=== PATIENT | male | born 1990 | race Caucasian/White ===

== ENCOUNTER 2018-03-05 08:03 | Emergency (ER) | payer OTHER, SELFPAY ==
[2018-03-05] VITALS (25 sets, daily range): BP systolic 106–157; BP diastolic 51–80; PULSE 71–123; RESP 12–29; TEMP 36.7; O2SAT 82–100
--- NOTE | 2018-03-05 08:14 | W.ED.GENAD ---
Discharge Plan Disposition Patient Disposition: HOME Condition: Improving Discharge Details Chief Complaint: Headache Clinical Impression: Migraine Primary Care Provider: Darwin Lay ED Provider: Burt George Home Meds and New Rx's Prescriptions: New metoclopramide HCl [Reglan] 10 mg tablet 10 mg PO Q6H PRN (Reason: nausea and vomiting) Qty: 7 RF: 0 ibuprofen 800 mg tablet 800 mg PO Q8H PRN (Reason: pain) Qty: 14 RF: 0 Discontinued rizatriptan [Maxalt] 10 MG tablet 10 mg PO PRN PRN (Reason: Headache) RF: 0 Discharge Instructions Instructions: Migraine Headache (ED) Additional Instructions: Home to sleep in a dark, quiet room today. Para small, frequent sips of fluids. May continue acetaminophen or Tylenol as needed for discomfort. May use prescriptions, as discussed, as needed. We will ask our care management team to assist you in arranging primary care follow-up Medical Decision Making 27-year-old male with a history of migraine headaches presents from home complaining of right-sided severe headache since last night. Associated with nausea and photophobia. Minimally improved with Excedrin at home. He arrives anxious and tachycardic, with a grossly normal neurologic examination and no evidence of meningitis. IV placed, labs obtained, patient given fluids and parenteral medications. He was able to get some rest and subsequently felt improved with decrease of his pain level from 10-3. Discussed with him trial of Reglan and ibuprofen as abortive medications in the future. We will ask care management to arrange the establishment of primary care. Patient stable for discharge at this time. HPI General Mode of arrival: ambulatory. Date/Time Provider Initiated Documentation: 03/05/18 08:05. Limitations to Documentation: no limitations. Information obtained by: patient and family. History of Present Illness 27 year old M presents to the emergency department with the chief complaint of Headache, right-sided, since last night, similar to previous, described as severe and similar to prior episodes, Quality is described as constant, and is localized to the head and right. Patient reports no radiation. Patient started experiencing this hour(s) and it has been constant. No relieving factors improve symptom(s), Other factors that worsen symptoms (Light) . Patient notes no other symptoms.. Patient did receive the following treatments prior to arrival, other (Excedrin Migraine) Related Data Home Medications Medication Instructions Recorded Confirmed ibuprofen 800 mg PO Q8H PRN #14 tab 03/05/18 metoclopramide HCl [Reglan] 10 mg PO Q6H PRN #7 tab 03/05/18 Previous Rx's Medication Instructions Recorded ibuprofen 800 mg PO Q8H PRN #14 tab 03/05/18 metoclopramide HCl [Reglan] 10 mg PO Q6H PRN #7 tab 03/05/18 Allergies Allergy/AdvReac Type Severity Reaction Status Date / Time No Known Allergies Allergy Unverified 03/05/18 08:09 General Stated Complaint: Headache SONAM: 3 Review of Systems Review of Systems 6 systems reviewed and otherwise - PFSH Social History Smoking/Tobacco Use Status: Never Exam Narrative Exam Narrative: GEN: awake, alert, oriented 3. Pleasant, well groomed, interactive, anxious and shaking HEAD: Normocephalic, atraumatic ENT: Mucous membranes moist, oropharynx unremarkable, External ear exam unremarkable EYES: PERRL, EOMI NECK: Full ROM, no KARIN, no menigismus CHEST/RESP: Nontender, clear to auscultation bilateral, no wheeze/rhonchi/rales CARDIOVASCULAR: Regular and tachycardic, no murmur, rub krista. 2+ Rad pulse bilateral ABDOMEN: Soft, nontender, no mass. +Bowel sounds EXT: Full ROM, no edema, no rash Neuro: Grossly normal neurologic exam, conversant, interactive. Psych: Speech fluent, thoughts congruent, affect normal Course Vital Signs Temperature 36.7 C 03/05/18 08:06 Pulse 120 H 03/05/18 08:06 Respiratory Rate 16 03/05/18 08:06 Blood Pressure 157/80 H 03/05/18 08:06 Temperature 36.7 C 03/05/18 08:06 Pulse 120 H 03/05/18 08:06 Respiratory Rate 16 03/05/18 08:06 Respiratory Effort 03/05/18 08:10 Blood Pressure 157/80 H 03/05/18 08:06 Pain Level 10 03/05/18 08:06
[2018-03-05] MEDS: Lactated Ringers 1,000 ML 1000 ML IV (08:24)
--- NOTE | 2018-03-05 08:25 | ED.GENADUL_ITS ---
Discharge Plan Disposition Patient Disposition: HOME Condition: Improving Discharge Details Chief Complaint: Headache Clinical Impression: Migraine Primary Care Provider: Darwin Lay ED Provider: Burt George Home Meds and New Rx's Prescriptions: New metoclopramide HCl [Reglan] 10 mg tablet 10 mg PO Q6H PRN (Reason: nausea and vomiting) Qty: 7 RF: 0 ibuprofen 800 mg tablet 800 mg PO Q8H PRN (Reason: pain) Qty: 14 RF: 0 Discontinued rizatriptan [Maxalt] 10 MG tablet 10 mg PO PRN PRN (Reason: Headache) RF: 0 Discharge Instructions Instructions: Migraine Headache (ED) Additional Instructions: Home to sleep in a dark, quiet room today. Para small, frequent sips of fluids. May continue acetaminophen or Tylenol as needed for discomfort. May use prescriptions, as discussed, as needed. We will ask our care management team to assist you in arranging primary care fol low-up Medical Decision Making 27-year-old male with a history of migraine headaches presents from home complaining of right-sided severe headache since last night. Associated with nausea and photophobia. Minimally improved with Excedrin at home. He arrives anxious and tachycardic, with a grossly normal neurologic examination and no evidence of meningitis. IV placed, labs obtained, patient given fluids and parenteral medications. He was able to get some rest and subsequently felt improved with decrease of his pain level from 10-3. Discussed with him trial of Reglan and ibuprofen as abortive medications in the future. We will ask care management to arrange the establishment of primary care. Patient stable for discharge at this time. [facility] General Mode of arrival: ambulatory . Date/Time Provider Initiated Documentation: 03/05/18 08:05 . Limitations to Documentation: no limitations . Information obtained by: patient and family . History of Present Illness 27 year old M presents to the emergency department with the chief complaint of Headache, right-sided, since last night, similar to previous, described as severe and similar to prior episodes, Quality is described as constant, and is localized to the head and right. Patient reports no radiation. Patient started experiencing this hour(s) and it has been constant. No relieving factors improve symptom(s), Other factors that worsen symptoms (Light) . Patient notes no other symptoms.. Patient did receive the following treatments prior to arrival, other (Excedrin Migraine) Related Data Home Medications Medication Instructions Recorded Confirmed ibuprofen 800 mg PO Q8H PRN #14 tab 03/05/18 metoclopramide HCl [Reglan] 10 mg PO Q6H PRN #7 tab 03/05/18 Previous Rx's Medication Instructions Recorded ibuprofen 800 mg PO Q8H PRN #14 tab 03/05/18 metoclopramide HCl [Reglan] 10 mg PO Q6H PRN #7 tab 03/05/18 Allergies Allergy/AdvReac Type Severity Reaction Status Date / Time No Known Allergies Allergy Unverified 03/05/18 08:09 General Stated Complaint: Headache SONAM: 3 Review of Systems Review of Systems 6 systems reviewed and otherwise - PFSH Social History Smoking/Tobacco Use Status: Never Exam Narrative Exam Narrative: GEN: awake, alert, oriented 3. Pleasant, well groomed, interactive, anxious and shaking HEAD: Normocephalic, atraumatic ENT: Mucous membranes moist, oropharynx unremarkable, External ear exam unremarkable EYES: PERRL, EOMI NECK: Full ROM, no KARIN, no menigismus CHEST/RESP: Nontender, clear to auscultation bilateral, no wheeze/rhonchi/rales CARDIOVASCULAR: Regular and tachycardic, no murmur, rub krista. 2+ Rad pulse bilateral ABDOMEN: Soft, nontender, no mass. +Bowel sounds EXT: Full ROM, no edema, no rash Neuro: Grossly normal neurologic exam, conversant, interactive. Psych: Speech fluent, thoughts congruent, affect normal Course Vital Signs Temperature 36.7 C 03/05/18 08:06 Pulse 120 H 03/05/18 08:06 Respiratory Rate 16 03/05/18 08:06 Blood Pressure 157/80 H 03/05/18 08:06 Temperature 36.7 C 03/05/18 08:06 Pulse 120 H 03/05/18 08:06 Respiratory Rate 16 03/05/18 08:06 Respiratory Effort 03/05/18 08:10 Blood Pressure 157/80 H 03/05/18 08:06 Pain Level 10 03/05/18 08:06
[2018-03-05 08:26] LABS: Abs Immature Grans 0.01 k/cumm (0.0-0.09); Absolute Basophil Count 0.02 k/cumm (0.0-0.2); Absolute Lymphocyte Count 1.76 k/cumm (1.2-3.4); Absolute Monocyte Count 0.67 k/cumm (0.11-0.7); Absolute Neutrophil Count 8.68 k/cumm (1.2-6.7); Basophils % 0.2; HCT 42.9 % (40.0-50.0); HGB 15.2 g/dL (13.5-17.5); Immature Grans % 0.1; Lymphocytes % 15.8; Mean Corp. HGB Concentration 35.4 g/dL (32.0-36.0); Mean Corpuscular Hemoglobin 32.2 pg (27.0-33.0); Mean Corpuscular Volume 90.9 fL (80-95); Mean Platelet Volume 9.8 fL (8.0-11.0); Neutrophils % 77.9; Platelet Count 291 x1000/uL (130-400); RBC 4.72 m/cumm (4.50-6.00); RBC Distribution Width 12.5 % (11.8-14.1); White Blood Cell Count 11.14 k/cumm (4.4-10.8)
[2018-03-05] MEDS: LORazepam 2 MG/ML VIAL 1 MG IVP (08:26)
[2018-03-05] MEDS: Ketorolac 30 MG/ML VIAL IVP (08:26)
[2018-03-05] MEDS: Ondansetron 4 MG/2 ML VIAL IVP (08:27)
[2018-03-05] MEDS: Dexamethasone 10 MG/ML VIAL IVP (08:36)
[2018-03-05 08:49] LABS: Anion Gap 14.4 mmol/L (3-11); BUN 13 mg/dL (7-18); CO2 23.6 mmol/L (21.0-32.0); CREATININE 0.98 mg/dL (0.70-1.30); Calcium 9.5 mg/dL (8.5-10.1); Chloride 96 mmol/L (98-107); Glucose 109 mg/dL (70-100); Potassium 3.7 mmol/L (3.5-5.1); Sodium 134 mmol/L (136-145)
== END 2018-03-05 10:51 | disposition home or self-care (01) ==
PROVIDERS: Emergency Provider Emergency Medicine; PCP General Practice
DX: G43.909 Migraine, unspecified, not intractable, without status migrainosus (principal)
CPT/HCPCS: 36415; 80048; 96361; 96374; 96375; 99283; 85025; J1100; J1885; J2060; J2405

== ENCOUNTER 2018-04-14 08:47 | Emergency (ER) | payer OTHER, SELFPAY ==
[2018-04-14] VITALS (27 sets, daily range): BP systolic 121–136; BP diastolic 56–84; PULSE 73–102; RESP 11–24; TEMP 36.5; O2SAT 88–100
--- NOTE | 2018-04-14 09:04 | NUR.NOTE ---
pt states that for the past week he has had a fevor of 102 and approximately once a day for about an hr he develops SOB, nausea, dizziness, hand cramps, tingle and an extreme overwhelming feeling pt has a history of panic attacks
--- NOTE | 2018-04-14 09:34 | DI.RAD_ITS ---
SYMPTOM/DIAGNOSIS: CHEST TIGHTNESS PA AND LATERAL CHEST: Comparison is made with 03 Aug 2015. The cardiac and mediastinal contours have a normal appearance. The lungs are well inflated and clear. No infiltrate, effusion or pneumothorax is seen. There is no peribronchial thickening. No bony abnormalities are identified. IMPRESSION: Negative chest x-ray.
--- NOTE | 2018-04-14 09:38 | ED.GENADUL_ITS ---
Discharge Plan Disposition Patient Disposition: HOME Condition: Improving Discharge Details Chief Complaint: GenMedical Clinical Impression: Anxiety, Viral illness Primary Care Provider: Dariwn Lay ED Provider: Clemente Mckeon Discharge Instructions Instructions: Viral Syndrome (ED), Anxiety (ED) Additional Instructions: Return immediately to the emergency department for any further concerns you may have. Otherwise rest over the next couple days, stay well-hydrated. Follow-up with your primary care provider next week for reassessment of your symptoms. Stand Alone Forms: Work Release Referrals: Darwin Lay MD [Primary Care Provider] - 1 week (Please call the office to arrange follow-up appointment within the next week) Discharge Data Discharge Date/Time-TO BE ENTERED AT DEPARTURE: 04/14/18 15:05 Medical Decision Making Patient presenting the emergency department for chief complaint of chest tightness, shaking, diaphoresis. Patient states this began on Saturday while he was at a work meeting which she had to abruptly leave. He then researched on the Internet medical symptoms which seem to make his symptoms worse. He states over the weekend this is has been intermittent with some tingling to his hands during episodes. Patient states when he initially presented to the emergency department he is feeling symptoms but by the time I was able to assess the patient he states feeling more calm, his hands are less shaky, and denies any chest pain. Patient does state significant cardiac history with cousin dying in his 40s and father having AK in his 50s. Plan to check EKG, cardiac labs, and chest x-ray. I am mostly concerned about panic attack given intermittent nature of patient's symptoms. Due to this plan to give patient 1 mg of Ativan pending results Review of labs show a low magnesium, elevated anion gap, nonspecific elevation of AST and ALT otherwise nondiagnostic labs. Patient was questioning about alcohol use and he states that he only socially drinks and had a beer a couple days ago but no significant alcohol abuse. Given increase in anion gap and AST greater than ALT I still question possible alcohol abuse as this could also be leading to patient's anxiety if he is withdrawing but he denies any symptoms of that nature. Patient was agreeable to having second troponin done as initial troponin is negative and repeat EKG. Second troponin reviewed and is also negative. Patient had another EKG done and showed no acute changes. Please see Dr. Genevieve Cash's notation of EKG findings that were nondiagnostic. Upon reassessment patient states improvement of symptoms. Thoroughly discussed with patient that he should follow-up with primary care provider within the next week for reassessment as I feel that this is anxiety panic attacks may need some ongoing medication if symptoms persist. At time of discharge patient did state that he been around other people with influenza and did have a fever and chills last week. Again reexamination shows no pericardial friction rub or acute abnormalities patient is afebrile non- tachycardic not hypoxic at this time so I do not feel that any further workup is needed or warranted. Doubt pericarditis. Patient does state during illness though that he did not receive much sleep and maybe got a half an hour over a 2-3-day span. I feel that this could also be leading towards patient having anxiety or panic attacks. Patient strongly encouraged to return as needed otherwise to follow-up with PCP. After discussion of diagnosis and plan of care patient is no further needs, questions, or concerns and states clear understanding to return to the emergency department for any worsening symptoms. HPI General Mode of arrival: ambulatory . Date/Time Provider Initiated Documentation: 04/14/18 09:13 . Limitations to Documentation: no limitations . Information obtained by: patient and RN notes reviewed . History of Present Illness 27 year old M presents to the emergency department with the chief complaint of Shortness of breath, Quality is described as other (Denies pain), Patient started experiencing this day(s) (4) and it has been intermittent and now resolved. Rest improves symptom(s), No exacerbating factors reported . Patient notes no other symptoms.. Patient did receive the following treatments prior to arrival, none Related Data Allergies Allergy/AdvReac Type Severity Reaction Status Date / Time No Known Allergies Allergy Unverified 04/14/18 09:09 General Stated Complaint: GenMedical SONAM: 3 Review of Systems Constitutional Denies chills, Denies fever(s) and Denies malaise Cardiovascular Reports as per HPI, Denies chest pain, Denies chest pain with activity, Reports diaphoresis, Denies syncope, Denies edema, Denies irregular heart rhythm, Denies palpitations, Reports dyspnea and Denies dyspnea on exertion Respiratory Denies cough, Denies hemoptysis, Reports dyspnea, Denies dyspnea on exertion, Denies stridor and Denies wheezing Gastrointestinal Denies abdominal pain, Denies nausea and Denies vomiting Neurologic Denies syncope Psychiatric Denies anxiety Endocrine Denies cold intolerance, Denies heat intolerance and Denies palpitations Allergic/Immunologic Denies wheezing PFSH Social History Smoking/Tobacco Use Status: Never Exam Const General: cooperative, healthy appearing, anxious, not diaphoretic and not ill appearing Nutritional Appearance: average body habitus Orientation: alert, awake and oriented x3 Limitations: mental status not altered Neck Neck: normal visual inspection, full ROM, trachea midline, supple and no anterior neck swelling Thyroid: thyroid normal Carotids: normal carotid upstroke and no bruits Chest Chest: normal inspection of the chest Resp Effort & Inspection: normal respiratory effort and able to speak in complete sentences Auscultation: clear to auscultation bilaterally Cardio Jugular venous pressure: no JVD Palpation: normal PMI Rate: regular rate Rhythm: regular rhythm Heart Sounds: S1 normal, S2 normal, no click, no gallops, no murmurs and no rubs Bruits: no abdominal aortic bruits and no carotid bruits Pulses: radial pulses present bilaterally 2+ GI Inspection: normal to inspection Palpation: soft, no aortic enlargement, no pulsatile masses and nontender Auscultation: normal bowel sounds Skin General skin exam: no rashes or lesions noted Neuro General: alert, awake, oriented x3, tone normal and moves all extremities Course Vital Signs Temperature 36.5 C 04/14/18 09:07 Pulse 102 H 04/14/18 09:07 Respiratory Rate 23 04/14/18 09:07 Blood Pressure 132/84 04/14/18 09:07 Pulse Oximetry 100 04/14/18 09:07 Temperature 36.5 C 04/14/18 09:07 Temperature Source Skin 04/14/18 09:07 Pulse 102 H 04/14/18 09:07 Respiratory Rate 23 04/14/18 09:07 Respiratory Effort Short of Breath 04/14/18 09:27 Blood Pressure 132/84 04/14/18 09:07 Pulse Oximetry 100 04/14/18 09:07 Oxygen Delivery Method Room Air 04/14/18 09:07 Oxygen Flow Rate 0 04/14/18 09:07 Pain Level 0 04/14/18 09:07
[2018-04-14 09:57] LABS: Abs Immature Grans 0.02 k/cumm (0.0-0.09); Absolute Basophil Count 0.02 k/cumm (0.0-0.2); Absolute Lymphocyte Count 1.03 k/cumm (1.2-3.4); Absolute Monocyte Count 0.63 k/cumm (0.11-0.7); Absolute Neutrophil Count 7.64 k/cumm (1.2-6.7); Basophils % 0.2; HCT 40.9 % (40.0-50.0); HGB 14.1 g/dL (13.5-17.5); Immature Grans % 0.2; Mean Corp. HGB Concentration 34.5 g/dL (32.0-36.0); Mean Platelet Volume 9.4 fL (8.0-11.0); Monocytes % 6.7; Neutrophils % 81.9; Platelet Count 234 x1000/uL (130-400); RBC Distribution Width 12.8 % (11.8-14.1); White Blood Cell Count 9.34 k/cumm (4.4-10.8)
[2018-04-14] MEDS: LORazepam 2 MG/ML VIAL 1 MG IVP (10:00)
[2018-04-14 10:13] LABS: ALT 85 U/L (12-78); AST 99 U/L (15-37); Albumin 4.3 g/dL (3.4-5.0); Alkaline Phosphatase 93 U/L (46-116); Anion Gap 19.1 mmol/L (3-11); BUN 12 mg/dL (7-18); Bilirubin, Total 0.9 mg/dL (0.2-1.0); CO2 19.9 mmol/L (21.0-32.0); CREATININE 1.09 mg/dL (0.70-1.30); Calcium 9.4 mg/dL (8.5-10.1); Chloride 98 mmol/L (98-107); Glucose 108 mg/dL (70-100); Magnesium 1.4 mg/dL (1.8-2.4); Potassium 3.6 mmol/L (3.5-5.1); Sodium 137 mmol/L (136-145); Total Protein 8.2 g/dL (6.4-8.2); Troponin I < 0.02 ng/mL (0.00-0.06)
[2018-04-14] MEDS: LORazepam 1 MG TAB PO (11:43)
[2018-04-14 13:29] LABS: Troponin I < 0.02 ng/mL (0.00-0.06)
[2018-04-14] MEDS: Magnesium Oxide 400 MG TAB 800 MG PO (15:01)
--- NOTE | 2018-04-15 09:12 | PDOC.ERCMPRO ---
Care Management Progress Note 04/14-[facility] [employer] requested assistance with a PCP (Alireza) f/u in one week for reassessment of anxiety/chest pain. Referral faxed to Dr. Lay's office this am.
== END 2018-04-14 15:05 | disposition home or self-care (01) ==
PROVIDERS: Emergency Provider Nurse Practitioner Family; PCP General Practice
DX: F41.9 Anxiety disorder, unspecified (principal); B34.9 Viral infection, unspecified
CPT/HCPCS: 36415; 80053; 93005; 96374; 99284; 71046; 83735; 84484; 85025; 93010; J2060

== ENCOUNTER 2018-05-21 07:20 | Emergency (ER) | payer OTHER, SELFPAY ==
[2018-05-21 07:27] VITALS: BP 154/91; PULSE 91; RESP 16; TEMP 36.5; O2SAT 99
[2018-05-21] MEDS: Normal Saline 1,000 ML 1000 ML IV ×2 (07:35→09:00)
[2018-05-21] MEDS: Ondansetron 4 MG/2 ML VIAL (07:45)
--- NOTE | 2018-05-21 08:13 | W.ED.GENAD ---
Discharge Plan Disposition Patient Disposition: HOME Condition: Stable Discharge Details Chief Complaint: Nausea/Vomit/Diar Clinical Impression: Strep pharyngitis, Vomiting, Hypokalemia Primary Care Provider: Darwin Lay ED Provider: Genevieve Cash Home Meds and New Rx's Prescriptions: New penicillin V potassium 500 mg tablet 500 mg PO BID 10 Days Qty: 19 RF: 0 Continued sertraline [Zoloft] 50 mg Tablet 50 mg PO DAILY RF: 0 Discharge Instructions Instructions: Penicillin V (By mouth), Ondansetron (By mouth), Pharyngitis (ED), Hypokalemia (ED), Acute Nausea and Vomiting (ED) Additional Instructions: Please return immediately to the emergency department if you develop any new or worsening symptoms or if you become otherwise concerned. It is extremely important that you make an appointment to be seen in follow-up by your primary care doctor soon as possible. Stand Alone Forms: Work Release Referrals: Darwin Lay MD [Primary Care Provider] - Discharge Data Discharge Date/Time-TO BE ENTERED AT DEPARTURE: 05/21/18 11:25 Medical Decision Making Kai Wright is a 27-year-old with history of heavy alcohol use presenting to the emergency department with 3 days of sore throat, vomiting, diarrhea, and fever. On exam patient is well and nontoxic appearing with erythematous posterior pharynx. Exam/history is not consistent with acute emergent abdominal process, retropharyngeal/peritonsillar abscess, meningitis, sepsis, pneumonia. Concern for mild dehydration, possible metabolic/lyte derangement given several days of vomiting/diarrhea, gastroenteritis, bacterial pharyngitis, influenza. And for IV fluid hydration, screening labs, UA, IV Zofran. Will monitor and reassess. No vomiting in the emergency department. Patient feels much improved after fluids. Strep test positive. Labs show hypokalemia, will replete with p.o. Will treat with penicillin. Patient passed p.o. challenge without issue. He is requesting discharge home. I had a lengthy discussion with the patient regarding return to emergency department precautions, home care and importance of outpatient follow-up as soon as possible. Patient verbalized understanding of the plan and is amenable. All questions answered. Medical Records Medical records reviewed: Yes I reviewed the patient's medical records. Lab Data Lab results reviewed: Yes I reviewed the patient's lab results. HPI General Mode of arrival: ambulatory. Date/Time Provider Initiated Documentation: 05/21/18 07:40. Limitations to Documentation: no limitations. Information obtained by: patient. HPI Narrative: Clay Tran is a 27-year-old man with history of heavy alcohol use presenting to the emergency department with sore throat, nausea, vomiting for the past 3 days. Patient reports that he has also had fever, with highest fever being 103.12 days ago. Patient reports that he has been taking Tylenol at home for his symptoms and no other medications. Last took Tylenol at 530 or 6 AM this morning. Patient reports that everything that he eats or drinks he vomits up directly after ingesting. Has also had some diarrhea. He denies abdominal pain or any other pain other than sore throat. He reports that he has had a mild cough. No recent travel. Related Data Home Medications Medication Instructions Recorded Confirmed penicillin V potassium 500 mg PO BID 10 Days #19 tab 05/21/18 sertraline [Zoloft] 50 mg PO DAILY 05/21/18 05/21/18 Previous Rx's Medication Instructions Recorded penicillin V potassium 500 mg PO BID 10 Days #19 tab 05/21/18 Allergies Allergy/AdvReac Type Severity Reaction Status Date / Time No Known Allergies Allergy Unverified 05/21/18 07:30 General Stated Complaint: Nausea/Vomit/Diar SONAM: 3 Review of Systems Review of Systems Constitutional: Reports fevers Eyes: denies eye pain ENT: denies facial pain, dental pain, reports sore throat Cardiovascular: denies chest pain Respiratory: denies SOB, reports mild cough GI: denies abdominal pain, reports vomiting, diarrhea : denies flank pain MSK: denies back pain, neck pain, arthralgias, myalgias Skin: denies rash Neuro: denies headaches, numbness, weakness [facility] Social History Smoking/Tobacco Use Status: Never Drug use: Occasionally Do you feel safe in your relationship?: Yes Exam Narrative Exam Narrative: Constitutional: well and [id number], pleasant, conversing normally HENT: head atraumatic/normocephalic/normal inspection, mucous membranes moist, posterior pharynx erythematous, tonsils are +1 edema bilaterally without exudate, uvula midline, handling secretions without issue/no drooling Eyes: conjunctiva normal, sclera normal, pupils 3mm b/l Neck: no stridor, normal ROM, trachea midline Chest: normal inspection Resp: normal work of breathing, LCTAB Cardio: normal rate, normal rhythm, no murmur appreciated GI: abdomen soft, non-tender, non-distended Back: normal inspection, no rash Skin: warm, dry, normal color, no rash Neuro: alert, not altered, grossly non-focal, normal tone Ext: no edema Psych: normal mood, normal affect, normal behavior Course Vital Signs Temperature 36.5 C 05/21/18 07:27 Pulse 91 H 05/21/18 07:27 Respiratory Rate 16 05/21/18 07:27 Blood Pressure 154/91 H 05/21/18 07:27 Pulse Oximetry 99 05/21/18 07:27 Temperature 36.5 C 05/21/18 07:27 Temperature Source Skin 05/21/18 07:27 Pulse 91 H 05/21/18 07:27 Respiratory Rate 16 05/21/18 07:27 Respiratory Effort Non-Labored 05/21/18 07:27 Blood Pressure 154/91 H 05/21/18 07:27 Blood Pressure Position Sitting 05/21/18 07:27 Pulse Oximetry 99 05/21/18 07:27 Oxygen Delivery Method Room Air 05/21/18 07:27 Oxygen Flow Rate 0 05/21/18 07:27 Pain Level 4 05/21/18 07:27 Lab/Test Results Lab/Test Results: 05/21/18 08:00 Nasopharynx Influenza Types A,B Antigen - Pending POC Strep Test-FLORENTINO(Rapid) Start: 05/21/18 08:12 Freq: .Rapid Strep Test Status: Active Protocol: Document 05/21/18 08:12 MMQ (Rec: 05/21/18 08:12 MMQ [id number]) Strep test-FL[facility]INO(Rapid)-POC POC-Strep test-[facility]INO (Rapid) Positive POC-Strep test-[facility]INO (Rapid) Positive
--- NOTE | 2018-05-21 08:16 | ED.GENADUL_ITS ---
Discharge Plan Disposition Patient Disposition: HOME Condition: Stable Discharge Details Chief Complaint: Nausea/Vomit/Diar Clinical Impression: Strep pharyngitis, Vomiting, Hypokalemia Primary Care Provider: Darwin Lay ED Provider: Genevieve Cash Home Meds and New Rx's Prescriptions: New penicillin V potassium 500 mg tablet 500 mg PO BID 10 Days Qty: 19 RF: 0 Continued sertraline [Zoloft] 50 mg Tablet 50 mg PO DAILY RF: 0 Discharge Instructions Instructions: Penicillin V (By mouth), Ondansetron (By mouth), Pharyngitis (ED), Hypokalemia (ED), Acute Nausea and Vomiting (ED) Additional Instructions: Please return immediately to the emergency department if you develop any new or worsening symptoms or if you become otherwise concerned. It is extremely important that you make an appointment to be seen in follow-up by your primary care doctor soon as possible. Stand Alone Forms: Work Release Referrals: Darwin Lay MD [Primary Care Provider] - Discharge Data Discharge Date/Time-TO BE ENTERED AT DEPARTURE: 05/21/18 11:25 Medical Decision Making Kai Wright is a 27-year-old with history of heavy alcohol use presenting to the emergency department with 3 days of sore throat, vomiting, diarrhea, and fever. On exam patient is well and nontoxic appearing with erythematous posterior pharynx. Exam/history is not consistent with acute emergent abdominal process, retropharyngeal/peritonsillar abscess, meningitis, sepsis, pneumonia. Concern for mild dehydration, possible metabolic/lyte derangement given several days of vomiting/diarrhea, gastroenteritis, bacterial pharyngitis, influenza. And for IV fluid hydration, screening labs, UA, IV Zofran. Will monitor and reassess. No vomiting in the emergency department. Patient feels much improved after fluids. Strep test positive. Labs show hypokalemia, will replete with p.o. Will treat with penicillin. Patient passed p.o. challenge without issue. He is requesting discharge home. I had a lengthy discussion with the patient regarding return to emergency department precautions, home care and importance of outpatient follow-up as soon as possible. Patient verbalized understanding of the plan and is amenable. All questions answered. Medical Records Medical records reviewed: Yes I reviewed the patient's medical records. Lab Data Lab results reviewed: Yes I reviewed the patient's lab results. HPI General Mode of arrival: ambulatory . Date/Time Provider Initiated Documentation: 05/21/18 07:40 . Limitations to Documentation: no limitations . Information obtained by: patient . HPI Narrative: Clay Tran is a 27-year-old man with history of heavy alcohol use presenting to the emergency department with sore throat, nausea, vomiting for the past 3 days. Patient reports that he has also had fever, with highest fever being 103.12 days ago. Patient reports that he has been taking Tylenol at home for his symptoms and no other medications. Last took Tylenol at 530 or 6 AM this morning. Patient reports that everything that he eats or drinks he vomits up directly after ingesting. Has also had some diarrhea. He denies abdominal pain or any other pain other than sore throat. He reports that he has had a mild cough. No recent travel. Related Data Home Medications Medication Instructions Recorded Confirmed penicillin V potassium 500 mg PO BID 10 Days #19 tab 05/21/18 sertraline [Zoloft] 50 mg PO DAILY 05/21/18 05/21/18 Previous Rx's Medication Instructions Recorded penicillin V potassium 500 mg PO BID 10 Days #19 tab 05/21/18 Allergies Allergy/AdvReac Type Severity Reaction Status Date / Time No Known Allergies Allergy Unverified 05/21/18 07:30 General Stated Complaint: Nausea/Vomit/Diar SONAM: 3 Review of Systems Review of Systems Constitutional: Reports fevers Eyes: denies eye pain ENT: denies facial pain, dental pain, reports sore throat Cardiovascular: denies chest pain Respiratory: denies SOB, reports mild cough GI: denies abdominal pain, reports vomiting, diarrhea : denies flank pain MSK: denies back pain, neck pain, arthralgias, myalgias Skin: denies rash Neuro: denies headaches, numbness, weakness [facility] Social History Smoking/Tobacco Use Status: Never Drug use: Occasionally Do you feel safe in your relationship?: Yes Exam Narrative Exam Narrative: Constitutional: well and [id number], pleasant, conversing normally HENT: head atraumatic/normocephalic/normal inspection, mucous membranes moist, posterior pharynx erythematous, tonsils are +1 edema bilaterally without exudate, uvula midline, handling secretions without issue/no drooling Eyes: conjunctiva normal, sclera normal, pupils 3mm b/l Neck: no stridor, normal ROM, trachea midline Chest: normal inspection Resp: normal work of breathing, LCTAB Cardio: normal rate, normal rhythm, no murmur appreciated GI: abdomen soft, non-tender, non-distended Back: normal inspection, no rash Skin: warm, dry, normal color, no rash Neuro: alert, not altered, grossly non-focal, normal tone Ext: no edema Psych: normal mood, normal affect, normal behavior Course Vital Signs Temperature 36.5 C 05/21/18 07:27 Pulse 91 H 05/21/18 07:27 Respiratory Rate 16 05/21/18 07:27 Blood Pressure 154/91 H 05/21/18 07:27 Pulse Oximetry 99 05/21/18 07:27 Temperature 36.5 C 05/21/18 07:27 Temperature Source Skin 05/21/18 07:27 Pulse 91 H 05/21/18 07:27 Respiratory Rate 16 05/21/18 07:27 Respiratory Effort Non-Labored 05/21/18 07:27 Blood Pressure 154/91 H 05/21/18 07:27 Blood Pressure Position Sitting 05/21/18 07:27 Pulse Oximetry 99 05/21/18 07:27 Oxygen Delivery Method Room Air 05/21/18 07:27 Oxygen Flow Rate 0 05/21/18 07:27 Pain Level 4 05/21/18 07:27 Lab/Test Results Lab/Test Results: 05/21/18 08:00 Nasopharynx Influenza Types A,B Antigen - Pending POC Strep Test-FLORENTINO(Rapid) Start: 05/21/18 08:12 Freq: .Rapid Strep Test Status: Active Protocol: Document 05/21/18 08:12 MMQ (Rec: 05/21/18 08:12 [id number] [id number]) Strep test-FL[facility]INO(Rapid)-POC POC-Strep test-[facility]INO (Rapid) Positive POC-Strep test-[facility] (Rapid) Positive
[2018-05-21 08:39] LABS: Abs Immature Grans 0.02 k/cumm (0.0-0.09); Absolute Basophil Count 0.03 k/cumm (0.0-0.2); Absolute Eosinophil Count 0.03 k/cumm (0.0-0.7); Absolute Lymphocyte Count 1.69 k/cumm (1.2-3.4); Absolute Monocyte Count 0.87 k/cumm (0.11-0.7); Absolute Neutrophil Count 12.16 k/cumm (1.2-6.7); Basophils % 0.2; Eosinophils % 0.2; HCT 41.4 % (40.0-50.0); Immature Grans % 0.1; Lymphocytes % 11.4; Mean Corp. HGB Concentration 33.8 g/dL (32.0-36.0); Mean Corpuscular Hemoglobin 31.9 pg (27.0-33.0); Mean Corpuscular Volume 94.3 fL (80-95); Mean Platelet Volume 10.2 fL (8.0-11.0); Monocytes % 5.9; Neutrophils % 82.2; Platelet Count 267 x1000/uL (130-400); RBC 4.39 m/cumm (4.50-6.00); RBC Distribution Width 12.8 % (11.8-14.1); White Blood Cell Count 14.79 k/cumm (4.4-10.8)
[2018-05-21 08:43] LABS: Anion Gap 13.1 mmol/L (3-11); BUN 11 mg/dL (7-18); CO2 25.9 mmol/L (21.0-32.0); CREATININE 0.82 mg/dL (0.70-1.30); Calcium 8.7 mg/dL (8.5-10.1); Chloride 99 mmol/L (98-107); Glucose 102 mg/dL (70-100); Potassium 3.3 mmol/L (3.5-5.1); Sodium 138 mmol/L (136-145)
[2018-05-21] MEDS: Ondansetron 4 MG/2 ML VIAL IVP (09:19)
[2018-05-21 10:00] VITALS: O2SAT 99
[2018-05-21 10:01] VITALS: BP 137/70; PULSE 76; O2SAT 99
[2018-05-21] MEDS: Penicillin V POTASSIUM 500 MG TAB PO (10:50)
== END 2018-05-21 11:25 | disposition home or self-care (01) ==
PROVIDERS: Emergency Provider Student in an Organized Health Care Education/Training Program; PCP General Practice
DX: J02.9 Acute pharyngitis, unspecified (principal); R11.10 Vomiting, unspecified; E87.6 Hypokalemia
CPT/HCPCS: 36415; 80048; 87449; 87880; 96361; 96374; 99284; 85025; J2405

== ENCOUNTER 2018-09-20 06:15 | Emergency (ER) | payer OTHER, SELFPAY ==
[2018-09-20 06:18] VITALS: BP 121/71; PULSE 78; RESP 16; TEMP 36.6; O2SAT 99
--- NOTE | 2018-09-20 06:34 | W.ED.GENAD ---
Discharge Plan Disposition Patient Disposition: HOME Condition: Good Discharge Details Chief Complaint: Orthopedic Clinical Impression: Low back pain Primary Care Provider: Darwin Lay ED Provider: Zacarias Ross [place] Meds and New Rx's Prescriptions: New lidocaine 5 % adhesive patch,medicated 1 patch TP DAILY Qty: 15 RF: 0 cyclobenzaprine [cyclobenzaprine] 10 MG tablet 10 mg PO Q6H PRN PRN (Reason: Spasms) Qty: 15 RF: 0 ibuprofen 600 mg tablet 600 mg PO TID PRN (Reason: pain) Qty: 15 RF: 0 Continued naltrexone 50 mg Tablet 50 mg PO DAILY RF: 0 sertraline [Zoloft] 50 mg Tablet 50 mg PO DAILY RF: 0 Discharge Instructions Additional Instructions: Activity as tolerated. Try using heat and gentle stretching to help with discomfort. Lidocaine patches 12 hours on then 12 hours off. Ibuprofen and cyclobenzaprine as needed. Follow-up with primary care next week if not better. Return to ED if you develop worsening pain, abdominal pain, fever, bladder or bowel dysfunction, numbness, weakness. Referrals: Darwin Lay MD [Primary Care Provider] - Medical Decision Making Patient with lower lumbar back pain that is mostly in the upper paraspinal region. There is no spinal tenderness. There is no direct trauma. There are no neurological signs or symptoms. Pain is worse with certain movements suggesting muscular nature. Lidoderm patch applied. Ibuprofen given. Flexeril given to take once he gets home as he is driving. Prescriptions for same as well as suggestion of heat and gentle stretching. Follow-up with primary care next week if not better. Return to ED for any neurologic changes, bladder or bowel dysfunction, abdominal pain, fever, other concerns. HPI General Mode of arrival: ambulatory. Date/Time Provider Initiated Documentation: 09/20/18 06:25. Limitations to Documentation: no limitations. Information obtained by: patient. HPI Narrative: Patient presents to ED with complaint of low back pain. Patient has had lower back pain and injury in the past. The last couple of days he has been moving and painting at home. Early this morning he choked on his coffee and had a coughing fit. [place] a pop in his lower back and has had significant pain since especially with certain movements. He denies having abdominal pain. He has no numbness or weakness. He did take some Tylenol. He tried to go to work but is unable to tolerate the discomfort. Came in for evaluation. Related Data Home Medications Medication Instructions Recorded Confirmed sertraline [Zoloft] 50 mg PO DAILY 05/21/18 09/20/18 cyclobenzaprine 10 mg PO Q6H PRN PRN #15 tab 09/20/18 ibuprofen 600 mg PO TID PRN #15 tab 09/20/18 lidocaine 1 patch TP DAILY #15 each 09/20/18 naltrexone 50 mg PO DAILY 09/20/18 09/20/18 Previous Rx's Medication Instructions Recorded cyclobenzaprine 10 mg PO Q6H PRN PRN #15 tab 09/20/18 ibuprofen 600 mg PO TID PRN #15 tab 09/20/18 lidocaine 1 patch TP DAILY #15 each 09/20/18 Allergies Allergy/AdvReac Type Severity Reaction Status Date / Time No Known Allergies Allergy Unverified 09/20/18 06:21 General Stated Complaint: Orthopedic SONAM: 4 Review of Systems Review of Systems As documented in HPI otherwise negative as below. Const: no fever, chills, weakness Resp: no cough, SOB, pleuritic pain CV: no CP, diaphoresis, edema, syncope GI: no abdominal pain, nausea, vomiting, diarrhea Neuro: no headache, numbness, focal weakness, confusion PFSH Social History (Updated 09/20/18 @ 06:46 by Zacarias Ross MD) Smoking/Tobacco Use Status: Never Alcohol Intake: former Drug use: Occasionally Substance use type: marijuana Do you feel safe at home: Yes Do you feel safe in your relationship?: Yes Exam Narrative Exam Narrative: Vitals: Afebrile with normal vitals. Const: WDWN male in NAD. HEENT: NC/AT. Normal facial exam. Neck: Supple. Trachea midline. Lungs: Normal respiratory effort. Back: No spinal tenderness. Some upper lumbar paraspinal tenderness/spasm. Decreased ROM lower back. Neuro: A+O x 3. CN grossly in tact. Strength is 5/5 including in LE though limited in LE due to pain in back. Sensation in tact. Ext: No C/C/E. No deformity or tenderness. Skin: Warm and dry without rash. Course Vital Signs Temperature 97.9 F 09/20/18 06:18 Pulse 78 09/20/18 06:18 Respiratory Rate 16 09/20/18 06:18 Blood Pressure 121/71 09/20/18 06:18 Pulse Oximetry 99 09/20/18 06:18 Temperature 97.9 F 09/20/18 06:18 Temperature Source Skin 09/20/18 06:18 Pulse 78 09/20/18 06:18 Respiratory Rate 16 09/20/18 06:18 Respiratory Effort Non-Labored 09/20/18 06:20 Blood Pressure 121/71 09/20/18 06:18 Blood Pressure Position Sitting 09/20/18 06:18 Pulse Oximetry 99 09/20/18 06:18 Oxygen Delivery Method Room Air 09/20/18 06:18 Oxygen Flow Rate 0 09/20/18 06:18 Pain Level 7 09/20/18 06:23
[2018-09-20] MEDS: Ibuprofen 600 MG TAB PO (06:39)
[2018-09-20] MEDS: Lidocaine 5% Patch 1 PATCH TP (06:39)
[2018-09-20] MEDS: Cyclobenzaprine 10 MG TAB PO (06:39)
== END 2018-09-20 06:43 | disposition home or self-care (01) ==
PROVIDERS: Emergency Provider Emergency Medicine; PCP General Practice
DX: M54.5 Low back pain (principal)
CPT/HCPCS: 99283

== ENCOUNTER 2019-11-24 18:02 | Outpatient (REF) | payer OTHER, SELFPAY ==
[2019-11-27 13:10] LABS: Patient Race White; SARS-CoV-2 RNA Undetected (Undetected); SARS-CoV-2 Specimen Source Nasal
== END 2019-11-24 18:22 ==
LOC: NCHCN 18:02
PROVIDERS: PCP General Practice; Visit Provider Physician Assistant
DX: R09.81 Nasal congestion (principal)
CPT/HCPCS: U0003

== ENCOUNTER 2019-12-02 08:35 | Outpatient (CLI) | payer OTHER, SELFPAY ==
--- NOTE | 2019-12-02 11:46 | DI.RAD_ITS ---
EXAM: XR LUMBAR SPINE COMPLETE CLINICAL HISTORY: CHRONIC LOW BACK PAIN,M54.5. TECHNIQUE: 2D digital imaging was performed. COMPARISON: No exams were available for comparison FINDINGS: BONES: No fracture or destructive lesion. Vertebral bodies are unremarkable. No facet hypertrophy mony ntified. DISKS: Mild narrowing of the L4-L5 disc space. Small osteophytes are seen at the anterior aspects at the L4-L5 level. ALIGNMENT: Lumbar spinal alignment is within normal limits. SOFT TISSUE: Normal. IMPRESSION: Mild degenerative changes at the L4-L5 disc space. DATA REPOSITORY: RADIATION DOSE DELIVERED:
== END 2019-12-02 08:55 ==
PROVIDERS: PCP Physician Assistant; Visit Provider Physician Assistant
DX: M47.896 Other spondylosis, lumbar region (principal)
CPT/HCPCS: 72110

== ENCOUNTER 2020-08-23 15:22 | Outpatient (REF) | payer OTHER, SELFPAY ==
[2020-08-25 14:04] LABS: COVID-19 RT-PCR UVMMC Result Negative (Negative)
== END 2020-08-23 15:23 | disposition home or self-care (01) ==
LOC: LBN 15:22
PROVIDERS: PCP Physician Assistant; Visit Provider Nurse Practitioner Family
DX: Z20.822 Contact with and (suspected) exposure to COVID-19 (principal); J06.9 Acute upper respiratory infection, unspecified
CPT/HCPCS: U0003

== ENCOUNTER 2020-12-01 07:03 | Emergency (ER) | payer OTHER, SELFPAY ==
--- NOTE | 2020-12-01 07:00 | DI.RAD_ITS ---
Exam(s) XR ANKLE LT COMPLETE EXAM: XR ANKLE LT COMPLETE-three views CLINICAL HISTORY: pain. TECHNIQUE: 2D digital imaging was performed. COMPARISON: No exams were available for comparison FINDINGS: No evidence of fracture or widening of the mortise. No degenerative changes. Talar dome unremarkabl e. Bone density normal. No osseous lesions IMPRESSION: No significant radiographic findings in the left ankle. DATA REPOSITORY: RADIATION DOSE DELIVERED:
[2020-12-01 07:06] VITALS: BP 126/86; PULSE 66; RESP 16; TEMP 36.5; O2SAT 99
--- NOTE | 2020-12-01 07:11 | ED.GENADUL_ITS ---
Discharge Plan Disposition Patient Disposition: HOME Condition: Stable Discharge Details Clinical Impression: Left ankle sprain, Contusion of left ankle Primary Care Provider: Meño Gamez ED Provider: Estrellita Delacruz Home Meds and New Rx's Prescriptions: No Action No Known Home Meds RF: 0 Discharge Instructions Instructions: Ankle Sprain (ED), Contusion in Adults (ED) Additional Instructions: Rest, ice, and elevate the affected area as much as possible. Alternate tylenol and motrin as needed and directed for pain. Follow-up with your Worker's Compensation provider within the next 1 to 2 weeks for reevaluation and for referral to orthopedics if your symptoms do not improve or worsen. Return immediately to the emergency department if you develop any worsening or new concerning symptoms. Referrals: Samuel Schrader MD [ [facility] STAFF PHYSICIAN] - Discharge Data Discharge Physician: Estrellita Delacruz Medical Decision Making <Ravi Oliveira MD - Last Filed: 12/01/20 07:38> 30 yo male was at work when a cannister rolled of a cradle and hit his leg ankle and he had pain causing him to become lightheaded briefly for a few minutes. He denies loc and did not fall or hit his head. Has no head pain, neck pain, chest pain or abdomen pain. Only has pain in the left ankle. He has no obvious deformity on visual inspection. Normal pulses and sensation. No pain over the metatarsals. Has full rom of the ankle though with pain over the lateral malleolus. No tenderness of tibia or knee with full rom. Suspect sprain vs contusion but will xray to evaluate for fracture Differential Diagnosis Differential Diagnosis: strain, sprain, fracture, contusion Imaging Data Radiologic Study: Attestation: I personally reviewed and interpreted this imaging study as follows: Imaging: X-Ray My impression: no acute findings <Estrellita Delacruz DO - Last Filed: 12/01/20 08:14> 0800 --please see Dr. Oliveira's note for initial presentation, exam and plan. Case endorsed to follow-up on x-ray and final disposition. X-ray reviewed and negative. Will place Chris wrap. Patient instructed on importance of RICE. His symptoms of nausea, lightheadedness and diaphoresis were brief and occurred at onset of injury and likely consistent with vasovagal near syncope related to pain. He had no complaint of chest pain, shortness of breath, palpitations and symptoms only lasted a few seconds and then resolved. Do not see an indication for lab work, EKG or related imaging. Advised to follow-up with Worker's Compensation physician. Patient given orthopedic follow-up information if needed. Usual and customary return precautions given prior to discharge. Medical Records Medical records reviewed: Yes I reviewed the patient's medical records. Imaging Data Radiologic Study: Radiologist's impression: XR ANKLE LT COMPLETE-three views CLINICAL HISTORY: pain. TECHNIQUE: 2D digital imaging was performed. COMPARISON: No exams were available for comparison FINDINGS: No evidence of fracture or widening of the mortise. No degenerative changes. Talar dome unremarkable. Bone density normal. No osseous lesions IMPRESSION: No significant radiographic findings in the left ankle. HPI <Ravi Oliveira MD - Last Filed: 12/01/20 07:38> General Mode of arrival: EMS . Date/Time Provider Initiated Documentation: 12/01/20 07:11 . Limitations to Documentation: no limitations . Information obtained by: patient . History of Present Illness 30 year old M presents to the emergency department with the chief complaint of left ankle pain, described as moderate, Quality is described as aching, and is localized to the left and lower extremity. Patient reports no radiation. Patient started experiencing this hour(s) (1) and it has been constant. Rest improves symptom(s), Movement worsens symptoms . Patient notes no other symptoms.. Patient did receive the following treatments prior to arrival, none Related Data Home Medications Medication Instructions Recorded Confirmed Unknown [No Known Home Meds] 12/01/20 12/01/20 Allergies Allergy/AdvReac Type Severity Reaction Status Date / Time etoh Allergy Uncoded 12/01/20 07:11 General Stated Complaint: Orthopedic SONAM: 4 Review of Systems <Ravi Oliveira MD - Last Filed: 12/01/20 07:38> All systems reviewed & are unremarkable except as noted in HPI and below Constitutional Constitutional: Denies chills, Denies fever(s) and Denies weakness Cardiovascular Cardiovascular: Denies chest pain and Denies dyspnea Respiratory Respiratory: Denies cough and Denies dyspnea Gastrointestinal Gastrointestinal: Denies abdominal pain, Denies nausea and Denies vomiting Neurologic Neurologic: Denies weakness PFS <Ravi Oliveira MD - Last Filed: 12/01/20 07:38> Social History Smoking/Tobacco Use Status: Never Smoking risk assessment performed?: Yes Alcohol Intake: former Drug use: Occasionally Substance use type: marijuana Do you feel safe at home: Yes Do you feel safe in your relationship?: Yes Exam <Ravi Oliveira MD - Last Filed: 12/01/20 07:38> Const General: no acute distress Orientation: alert HENMS Head: normal to inspection Ears: external ears normal General nose exam: external nose normal Mouth: moist mucous membranes Eyes General: appearance normal, both eyes and all related structures Neck Neck: normal visual inspection Resp Effort & Inspection: normal respiratory effort and able to speak in complete sentences Cardio Rate: regular rate Skin General skin exam: no rashes or lesions noted Neuro General: patient alert and patient oriented x3 Extrem General: normal to inspection, full ROM and capillary refill normal Psych Mental Status: mental status grossly normal Course <Ravi Oliveira MD - Last Filed: 12/01/20 07:38> Vital Signs Vital signs: Vital Signs Temperature 36.5 C 12/01/20 07:06 Pulse 66 12/01/20 07:06 Respiratory Rate 16 12/01/20 07:06 Blood Pressure 126/86 12/01/20 07:06 Pulse Oximetry 99 12/01/20 07:06 Temperature 36.5 C 12/01/20 07:06 Temperature Source Skin 12/01/20 07:06 Pulse 66 12/01/20 07:06 Respiratory Rate 16 12/01/20 07:06 Respiratory Effort Non-Labored 12/01/20 07:06 Blood Pressure 126/86 12/01/20 07:06 Blood Pressure Position Supine 12/01/20 07:06 Pulse Oximetry 99 12/01/20 07:06 Oxygen Delivery Method Room Air 12/01/20 07:06 Oxygen Flow Rate 0 12/01/20 07:06 Pain Level 5 12/01/20 07:06 Sign Out <Ravi Oliveira MD - Last Filed: 12/01/20 07:38> Sign Out Data: Sign Out Comment: object at work hit his left ankle, f/u xray reads likely d/c if negative Last updated by Ravi Oliveira MD at 12/01/20 07:34
== END 2020-12-01 08:16 | disposition home or self-care (01) ==
PROVIDERS: Emergency Provider Physician Assistant; PCP Physician Assistant
DX: S93.492A Sprain of other ligament of left ankle, initial encounter (principal); S90.02XA Contusion of left ankle, initial encounter; W20.8XXA Other cause of strike by thrown, projected or falling object, initial encounter; Y99.0 Civilian activity done for income or pay
CPT/HCPCS: 99283; 73610

== ENCOUNTER 2022-03-07 14:58 | Emergency (ER) | payer OTHER, SELFPAY ==
[2022-03-07 15:12] VITALS: BP 130/75; PULSE 72; RESP 18; TEMP 37; O2SAT 100
--- NOTE | 2022-03-07 15:15 | DI.RAD_ITS ---
Exam(s) XR FINGER RT RING EXAM: XR FINGER RT RING CLINICAL HISTORY: crush injury, pain. TECHNIQUE: 2D digital imaging was performed of the right finger. Three views were obtained. PA/AP, oblique, and lateral views were obtained. COMPARISON: No exams were available for comparison FINDINGS: BONES: There is a nondisplaced oblique fracture through the terminal tuft of the ring finger. No bon y destructive lesion is seen. JOINTS: No dislocation present. SOFT TISSUE: There is soft tissue swelling of the distal ring finger. No radiopaque foreign bodies a re identified. IMPRESSION: Nondisplaced fracture of the terminal tuft of the ring finger. DATA REPOSITORY: RADIATION DOSE DELIVERED:
[2022-03-07] MEDS: Ibuprofen 600 MG TAB PO (15:27)
[2022-03-07] MEDS: Acetaminophen 325 MG TAB 650 MG PO (15:27)
--- NOTE | 2022-03-07 15:55 | ED.GENADUL_ITS ---
Discharge Plan Disposition Patient Disposition: Home Condition: Stable Discharge Details Clinical Impression: Closed fracture of phalanx of ring finger Primary Care Provider: Meño Gamez ED Provider: Tee Cash Home Meds and New Rx's Prescriptions: No Action No Known Home Meds Discharge Instructions Additional Instructions: Please take ibuprofen over the counter. Take 600mg by mouth every 6 hours as needed for pain. Please take acetaminophen (tylenol) - 650mg every 6 hours by mouth as needed for pain. Please keep splint intact and follow-up with orthopedics. No use of the injured finger until cleared. Please contact your primary care physician to arrange follow-up. Return to the ER immediately for any worsening or new concerning symptoms. Referrals: [facility] [Provider Group] Meño Gamez [Primary Care Provider] - Medical Decision Making [id number] --31-year-old male with crush injury to his distal right fourth digit just prior to arrival. Patient neurologically intact distally. X-ray of the right fourth digit interpreted by radiology: Distal tuft fracture nondisplaced. Finger splint will be applied patient will be discharged to follow-up with orthopedics. Ibuprofen and Tylenol were provided. HPI General Mode of arrival: ambulatory . Date/Time Provider Initiated Documentation: 03/07/22 15:16 . Limitations to Documentation: no limitations . Information obtained by: patient . HPI Narrative: 31-year-old male presents with chief complaint of crush injury to his right index finger. Patient notes he got the end of his right index finger caught in a piece of heavy machinery at work. This occurred just prior to arrival. Pain is localized to the distal right index finger. Pain worse on palpation. He has associated swelling. No numbness. Related Data Home Medications Medication Instructions Recorded Confirmed Unknown [No Known Home Meds] 12/01/20 03/07/22 Allergies Allergy/AdvReac Type Severity Reaction Status Date / Time etoh Allergy Uncoded 03/07/22 15:15 General Stated Complaint: Orthopedic SONAM: 4 Review of Systems Musculoskeletal Musculoskeletal: Reports as per HPI Neurologic Neurologic: Denies sensory deficit PFSH All Active Problems Left ankle sprain (Acute) Contusion of left ankle (Acute) Closed fracture of phalanx of ring finger (Acute) Spasm of lumbar paraspinous muscle (Acute) Social History Smoking/Tobacco Use Status: Never Smoking risk assessment performed?: Yes Alcohol Intake: former Drug use: Occasionally Substance use type: marijuana Do you feel safe at home: Yes Do you feel safe in your relationship?: Yes Exam Extrem Right upper extremity: hand (Distal ring finger swollen volar, tender palpation, no subungual hematoma) Course Vital Signs Vital signs: Vital Signs Temperature 37.0 C 03/07/22 15:12 Pulse 72 03/07/22 15:12 Respiratory Rate 18 03/07/22 15:12 Blood Pressure 130/75 03/07/22 15:12 Pulse Oximetry 100 03/07/22 15:12 Temperature 37.0 C 03/07/22 15:12 Temperature Source Temporal Artery Scan 03/07/22 15:12 Pulse 72 03/07/22 15:12 Respiratory Rate 18 03/07/22 15:12 Respiratory Effort Non-Labored 03/07/22 15:14 Blood Pressure 130/75 03/07/22 15:12 Blood Pressure Position Sitting 03/07/22 15:12 Pulse Oximetry 100 03/07/22 15:12 Oxygen Delivery Method Room Air 03/07/22 15:12 Oxygen Flow Rate 0 03/07/22 15:12 Pain Level 6 03/07/22 15:15
== END 2022-03-07 16:09 | disposition home or self-care (01) ==
PROVIDERS: Emergency Provider Student in an Organized Health Care Education/Training Program; PCP Physician Assistant
DX: S67.194A Crushing injury of right ring finger, initial encounter (principal); S62.664A Nondisplaced fracture of distal phalanx of right ring finger, initial encounter for closed fracture; Y99.0 Civilian activity done for income or pay; W23.0XXA Caught, crushed, jammed, or pinched between moving objects, initial encounter
CPT/HCPCS: 99283; 73140; 99282

== ENCOUNTER 2022-07-31 01:13 | Outpatient (CLI) | payer OTHER, SELFPAY ==
--- NOTE | 2022-07-31 10:45 | DI.MRI_ITS ---
Exam(s) MR LUMBAR SPINE WO EXAM: MR LUMBAR SPINE WO CLINICAL HISTORY: CHRONIC LBP, M54.5, WITH RADICULOPATHY. TECHNIQUE: Multiplanar multisequence MRI of the Lumbar spine was performed. COMPARISON: CR XR LUMBAR SPINE COMPLETE from 12/02/2019 FINDINGS: Bones: The last intervertebral disc space is designated the L5/S1 level for the numbering purpose of this examination. The vertebral body heights are well maintained. Alignment is satisfactory. Mild d egenerative endplate signal changes are seen at L4-L5. Cord: The conus tip ends at the L1 level. It is of normal size and signal intensity. T12-L1: No disc herniations or bulges are present. No central spinal canal or neural foraminal stenos is. L1-2: No disc herniations or bulges are present. No central spinal canal or neural foraminal stenosis . L2-3: No disc herniations or bulges are present. No central spinal canal or neural foraminal stenosis . L3-4: No disc herniations or bulges are present. No central spinal canal or neural foraminal stenosis . L4-5: There is a small central disc herniation with mild extrusion posterior to the L5 vertebral body . There is very mild narrowing of the central spinal canal. No neural foraminal stenosis is present . L5-S1: No disc herniations or bulges are present. No central spinal canal or neural foraminal stenosi s. Soft tissues: The visualized SI joints and sacrum are well maintained. The paraspinal soft tissues ar e unremarkable. IMPRESSION: 1. Small central disc herniation at L4-L5 causing mild central spinal canal narrowing. No neural for aminal stenosis. 2. The remaining disc levels are unremarkable. DATA REPOSITORY:
== END 2022-07-31 01:33 ==
LOC: DI 01:13
PROVIDERS: PCP Physician Assistant; Visit Provider Physician Assistant
DX: M51.16 Intervertebral disc disorders with radiculopathy, lumbar region (principal)
CPT/HCPCS: 72148